=== PATIENT | female | born 1980 | race African-American/Black ===

== ENCOUNTER 2018-12-15 08:00 | Day surgery (SDC) | payer OTHER ==
[2018-12-15 08:20] LABS: Specific Gravity 1.015 (1.005-1.030)
[2018-12-15] MEDS ORDERED: CEFAZOLIN/SWI 1gm 1 GM/10 ML SYR ONE (08:33)
[2018-12-15] MEDS ORDERED: Ringers Lactate 1,000 ML IV ONE ×3 (08:33→13:59)
[2018-12-15] MEDS ORDERED: GENTAMICIN SULF 80 MG/2ML INJ ONE (08:39)
[2018-12-15] MEDS ORDERED: CEFAZOLIN SODIUM 1 GM/VIAL ONE (08:40)
[2018-12-15] MEDS ORDERED: BACITRACIN 50000 UNIT VIAL ONE (08:40)
[2018-12-15] MEDS ORDERED: LIDOCAINE 2% MPF 5 ML VIAL ONE (08:47)
[2018-12-15] MEDS ORDERED: MIDAZOLAM HCL 2 MG/2 ML INJ ONE (08:47)
[2018-12-15] MEDS ORDERED: PROPOFOL 200 MG/20 ML VIAL IV ONE (08:47)
[2018-12-15] MEDS ORDERED: FENTANYL CITR 100 MCG/2 ML ONE ×4 (08:47→12:19)
[2018-12-15] MEDS ORDERED: ROCURONIUM 50 MG/5 ML VIAL IV ONE (08:48)
[2018-12-15] MEDS ORDERED: ONDANSETRON 4 MG/2 ML VIAL ONE (08:48)
[2018-12-15] MEDS ORDERED: SCOPOLAMINE HYDROBROMIDE PATCH TD ONE (08:57)
[2018-12-15] MEDS ORDERED: NS 0.9% VIAL 20 ML ONE (09:46)
[2018-12-15] MEDS ORDERED: dexAMETHasone 10 MG/ML VIAL ONE (10:40)
[2018-12-15] MEDS ORDERED: Phenylephrine HCl 10 MG/ML 1 ML VIAL ONE (14:08)
[2018-12-15] MEDS ORDERED: MEPERIDINE HCL 25 MG/0.5 ML ONE (14:36)
[2018-12-15] MEDS ORDERED: KETOROLAC 30 MG/ML INJ ONE (14:38)
[2018-12-15] MEDS ORDERED: Mastisol Adhesive Liq ONE (14:53)
[2018-12-15] MEDS: HYDROMORPHONE HCL 1 MG/ML INJ ONE ×2 (15:33→15:38)
[2018-12-15] MEDS ORDERED: CODEINE 30MG/APAP 300MG TAB ONE (16:34)
[2018-12-15] MEDS ORDERED: CODEINE 30MG/APAP 300MG TAB PO ONE (16:38)
[2018-12-15] MEDS ORDERED: MORPHINE 4 MG/ML SYR ONE (16:58)
[2018-12-15] MEDS ORDERED: MORPHINE 4 MG/ML SYR IV ONE ×2 (17:00→17:20)
--- NOTE | 2018-12-16 02:44 | OP ---
Surgeon: Aris Hernandez MD Preoperative Diagnosis: Breast enlargement and descent. Postoperative Diagnosis: Breast enlargement and descent. Procedure: Reduction and lift. Anesthesia: General. Description Of Procedure: After satisfactory induction of general anesthesia, the chest was prepped with DuraPrep. Dry sterile drapes applied in the usual manner. A 5 cm template was used to outline the right and left areolas, and transverse and curvilinear inferior incisions were made. The interve malika skin was de-epithelialized with the EpiCut or dermabrader. Then, the transverse incision was ma de. The flap was thinned to 1.5 cm. Flap elevation continued towards the sternum, clavicle, and the anterior axillary line. Then, the inferior incision was made and then the tissue was formed into a cone. Prior to this, excess breast tissue lateral was excised using a scalpel. Conization was perfo rmed with 2-0 PDS sutures. Then, straps were elevated at 12 o'clock, 1:30, and 3 o'clock positions i n the right breast. The straps were then woven in and out of the pectoralis major muscle, back to th e base of the cone, back to the pectoralis muscle, back to the base of the cone to be sewn to themsel ves. This was done with the 12 o'clock and the 1:30 strap. The 3 o'clock strap was sewn over the st ernum with 2-0 Ethibond. Left side was done in a mirror-image manner. The wound was temporarily sta pled shut. Patient was sat up for symmetry. The symmetry was adequate. Patient returned supine. 1 0 MICHAEL was brought out of the axilla. Wound was irrigated with antibiotic solution. Wound was closed with 3-0 Vicryl on subcu, 3-0 PDS running subcuticular tied in the vertical meridian of the breast. Left side was done in an identical manner. The drains were sewn with 2-0 silk and the patient was sa t up. Site for new nipple-areolar complex was marked out. Patient returned supine and then tissue w as cored out with a 5 cm template and nipple was delivered and sewn with interrupted 4-0 PDS followed by 4-0 PDS running subcuticular. Dressings consisted of tincture of benzoin, Steri-Strips, 5 x 5's, fluffs, and Clyde wrap. Patient tolerated the procedure well. Amount of tissue removed from the righ t breast was 316, left breast was 46 g. LULÚ/RAYNA Voice ID: [id number] Report ID: [id number]
== END 2018-12-15 18:10 | disposition home or self-care (01) ==
LOC: OR 08:00
PROVIDERS: ATTEND Specialist
PROC: 0HSV0ZZ Reposition Bilateral Breast, Open Approach (ICD-10-PCS; 2018-12-15)
PROC: 0HBV0ZZ Excision of Bilateral Breast, Open Approach (ICD-10-PCS; principal; 2018-12-15 09:00)
DX: N64.81 Ptosis of breast (principal); N62 Hypertrophy of breast
CPT/HCPCS: 19316; 19318; 81025; 88305; J2704; J2370; J1580; J2250; J3010 ×4; J1100; J2175; J1170; J0690 ×2; J2405